=== PATIENT | female | born 1950 | race Caucasian/White ===

== ENCOUNTER 2020-04-19 14:53 | Emergency (ER) | payer BC, SELFPAY ==
--- NOTE | ~2020-04-19 | XR_ITS ---
XR wrist LT 2V DATE: 04/19/2020 15:27 INDICATION: Fall. Left wrist pain. TECHNIQUE: AP and lateral views COMPARISON: None FINDINGS: Diffuse osteopenia. There is fracture of the talus styloid process. There is a transverse distal radial fracture with up to approximately 6 mm dorsal and 2.5 mm lateral displacement with approximately 30 degrees apex anterior angulation, associated dorsal inclination of the distal radial and fibular surface. Radiocarpal alignment is preserved. Diffuse osteopenia. IMPRESSION: Distal radial and ulnar styloid process fractures Reviewed, dictated and finalized at location A.
--- NOTE | ~2020-04-19 | XR_ITS ---
XR wrist LT 2V 04/19/2020 16:59 Indication: Left wrist pain post reduction Procedure: 2 views left wrist Comparison: 04/19/2020 Findings: Displaced fracture radial styloid. Transverse distal radial fracture with decreased dorsal angulation. There is persistent dorsal and ulnar displacement. Moderate soft tissue swelling. Diffuse osteopenia. Impression: 1: Improved angulation of displaced distal radial metaphyseal fracture post reduction. There is persi stent dorsal and ulnar displacement. 2: Ulnar styloid avulsion fracture. Reviewed, dictated and finalized at location A. Impression: 1: Improved angulation of displaced distal radial metaphyseal fracture post red uction. There is persistent dorsal and ulnar displacement. 2: Ulnar styloid avulsion fracture.
[2020-04-19 14:58] VITALS: BP 116/55; PULSE 71; RESP 18; TEMP 35.9; O2SAT 99
--- NOTE | 2020-04-19 15:50 | ED.GENADULT ---
HPI - General Adult General Chief complaint: Extremity Injury, Upper Stated complaint: Left Wrist Injury Time Seen by Provider: 04/19/20 15:05 Source: patient and family Mode of arrival: ambulatory Limitations: no limitations History of Present Illness HPI narrative: Patient is a 69-year-old female who presents to emergency department for evaluation of left wrist injury after being pulled down while walking a dog landing on outstretched left wrist has since had swelling and pain to the left wrist joint patient denies other injuries or complaints presents immediately after the accident has not taken anything for her symptoms Related Data Allergies Allergy/AdvReac Type Severity Reaction Status Date / Time No Known Allergies Allergy Unverified 08/02/19 13:30 Review of Systems Review of Systems: All systems reviewed & are unremarkable except as noted in HPI and below PMFSH Past Medical History Medical History (Updated 04/19/20 @ 17:19 by Bijan Bains PA-C) Angiomyolipoma of both kidneys Diverticulosis of colon Dyslipidemia Essential (primary) hypertension Osteopenia unspecified location Pulmonary nodules unspecified location Surgical History Surgical History History of breast implant 1985 History of hysterectomy 1999 Hx of appendectomy 1995 Family History Family History Other Hypertension Social History Social History Smoking status: Never smoker Second hand tobacco smoke exposure: No Alcohol intake: current Substance use: never Substance use type: does not use Exam Narrative: Exam Narrative: GENERAL: Well-appearing, well-nourished, and in no acute distress. HEAD: Normocephalic, atraumatic. EYES: PERRLA and EOMI. ENT: Nares clear, no rhinorrhea or epistaxis. Mucous membranes moist. CHEST: Clear to auscultation. No respiratory distress. No wheezes rales or rhonchi HEART: Regular rate and rhythm. No murmur heard. Normal peripheral pulses. EXTREMITIES: Swelling and tenderness of the left wrist joint SKIN: Warm, dry, no rash. NEURO: No focal deficits. Alert and oriented x3. Neurovascularly intact. Capillary refill less than 3 seconds PSYCH: Normal mood and affect. Course Course Emergency Course: Patient in the room at this time aware of case findings treatment plan diagnosis recommendations of orthopedic surgical agrees to follow-up Consultations Consultation #1: Discussed case with orthopedic surgeon who will follow patient in clinic Date: 04/19/20 Time: 17:17 Vital Signs Vital signs: Vital Signs Temperature 96.6 F L 04/19/20 14:58 Pulse Rate 71 04/19/20 14:58 Respiratory Rate 18 04/19/20 14:58 Blood Pressure 116/55 L 04/19/20 14:58 Pulse Oximetry 99 04/19/20 14:58 Temperature 96.6 F L 04/19/20 14:58 Pulse Rate 71 04/19/20 14:58 Respiratory Rate 18 04/19/20 14:58 Blood Pressure 116/55 L 04/19/20 14:58 Pulse Oximetry 99 04/19/20 14:58 Procedures Orthopedic Fracture Reduction Fracture #1: Fracture Reduction date: 04/19/20 Fracture Reduction time: 17:16 Side: left Fracture Reduction Location: radius Analgesia: hematoma block Pre-Procedure Neuro Vascular Exam: normal Technique: direct manipulation Post Reduction X-rays Demonstrate: anatomical reduction Post-reduction neuro exam: intact Post-reduction vascular exam: intact Splint Applied: Yes Patient Tolerated Procedure: well Orthopedic Splinting/Casting Injury #1: Splinting/Casting Date: 04/19/20 Splinting/Casting Time: 17:17 Side: left Upper Extremity Immobilizer: posterior splint Splint: prefabricated OCL: short arm Pre-Procedure Neuro Vascular Exam: normal Post-Procedure Neuro Vascular Exam: norm
[2020-04-19] MEDS: MORPHINE SULFATE (*CRX) 4 MG/ML INJ IV PUSH ×2 (15:56→16:43)
[2020-04-19 17:32] VITALS: BP 115/72; PULSE 69; RESP 18; O2SAT 100
== END 2020-04-19 17:33 | disposition home or self-care (01) ==
PROVIDERS: Emergency Provider Emergency Medicine; PCP Family Medicine
DX: S52.592A Other fractures of lower end of left radius, initial encounter for closed fracture (principal); S52.612A Displaced fracture of left ulna styloid process, initial encounter for closed fracture; E78.5 Hyperlipidemia, unspecified; I10 Essential (primary) hypertension; M85.88 Other specified disorders of bone density and structure, other site; Z86.018 Personal history of other benign neoplasm; Y93.K1 Activity, walking an animal; W18.39XA Other fall on same level, initial encounter
CPT/HCPCS: 25605; 73100; 96374; 96376; 99285; J2270

== ENCOUNTER 2020-04-23 13:15 | Outpatient (CLI) | payer BC, SELFPAY ==
[2020-04-24 18:20] LABS: SARS-CoV-2 RNA PCR Negative
== END 2020-04-23 13:16 | disposition home or self-care (01) ==
LOC: ANHCOVIDDT 13:15
PROVIDERS: PCP Family Medicine; Visit Provider Orthopaedic Surgery
DX: Z01.812 Encounter for preprocedural laboratory examination (principal); Z20.828 Contact with and (suspected) exposure to other viral communicable diseases
CPT/HCPCS: 87635; C9803; U0003

== ENCOUNTER 2020-04-25 01:14 | Day surgery (SDC) | payer BC, SELFPAY ==
[2020-04-23 14:57] VITALS: BMI 24.2
[2020-04-25] VITALS (7 sets, daily range): BP systolic 128–144; BP diastolic 61–83; PULSE 80–96; RESP 12–22; TEMP 36.3–36.9; O2SAT 91–98
--- NOTE | ~2020-04-25 | XR_ITS ---
EXAMINATION: XR surgery orthopedic DATE: 04/25/2020 13:16 INDICATION: ORIF distal left radial fracture TECHNIQUE: 2 fluoroscopic spot images of the left wrist were obtained during procedure performed by Rosemary Mcdonough. Radiologist was not present for the imaging or procedure. The amount of fluoroscopy time use d during this procedure was 0.7 minutes. COMPARISON: None. FINDINGS: Near-anatomic alignment post open reduction and volar T plate and screw fixation of a fracture of the distal left radius which is now in near-anatomic alignment. Unchanged distraction of an ulnar styloi d avulsion fracture. No other fractures identified. Expected postoperative gas in the soft tissues. IMPRESSION: 1. Near-anatomic alignment post reduction and internal fixation of an extra articular distal left rad ial fracture. 2. Unchanged distracted ulnar styloid fracture which remains unfixed. Reviewed, dictated and finalized at location A. UND SALES MANAGER IMPRESSION: 1. Near-anatomic alignment post reduction and internal fixation of an extra art icular distal left radial fracture. 2. Unchanged distracted ulnar styloid fracture which remains unfixed.
--- NOTE | 2020-04-25 08:16 | P.PNAN_ITS ---
Anes - Initial Pre Proc Eval Procedure: Operation Date: 04/25/20 12:00 Proposed Procedures p Open Reduction Internal Fixation Left Distal Radius - Mario Mcdonough MD Date/Time: 04/25/20 08:16 Surgeon: Mario Mcdonough MD Pre Op Diagnosis: left distal radius fx Patient Data Age: 69 Gender: F Height: 1.68 m Weight: 68 kg Allergies Allergy/AdvReac Type Severity Reaction Status Date / Time No Known Allergies Allergy Unverified 04/25/20 10:54 Home Medications Medication Instructions Recorded Confirmed Type hydrocodone-acetaminophen [Shingleton] 1 tablet PO Q4H PRN #20 tablet 04/19/20 04/23/20 Rx atorvastatin 10 mg PO HS 04/23/20 04/23/20 History calcium carbonate [Calcium 600] 600 mg PO DAILY 04/23/20 04/23/20 History glucos sul 2KZb-kka-dxzrn-C-Mn 1 cap PO DAILY 04/23/20 04/23/20 History [Glucosamine Chondroitin] lisinopril-hydrochlorothiazide 1 tablet PO QAM 04/23/20 04/23/20 History vit C,W-Ux-mwveg-lutein-zeaxan 1 tablet PO DAILY 04/23/20 04/23/20 History [PreserVision AREDS-2] Patient hx anesthesia problems: none Family hx anesthesia problems: none PMFSH Past Medical History Medical History (Updated 04/23/20 @ 11:13 by Mario Mcdonough MD) Angiomyolipoma of both kidneys BMI 25.0-25.9,adult Diverticulosis of colon Dyslipidemia Essential (primary) hypertension Osteopenia unspecified location Pulmonary nodules unspecified location Surgical History Surgical History (Updated 04/23/20 @ 11:14 by Mario Mcdonough MD) Closed extra-articular fracture of distal end of left radius surgery April 25, 2020 History of breast implant 1985 History of hysterectomy 1999 Hx of appendectomy 1995 Family History Family History Other Hypertension Social History Social History (Updated 04/23/20 @ 10:51 by Bianka Bains) Smoking status: Never smoker Second hand tobacco smoke exposure: No Alcohol intake: current Drinks per week: 1 Substance use: never Substance use type: does not use Living arrangements: with family Gender identity (if verbalized by the patient): Female Spiritual care concerns: No Anes - Eval Final PreProcedure Day of Procedure 04/25/20 08:16 Patient weight: normal Heart: regular rate and rhythm Lungs: clear to auscultation and normal air movement Airway: Mallampati scale class II Neurological: alert and oriented Last oral intake: >/= 8 hours ASA classification: II Emergent: no Anesthetic plan: proceed Anesthesia type and monitoring: general LMA Informed Consent: The patient's anesthetic plan and its attendant risks and benefits were discussed with the patient/family/POA. Questions were solicited and answers provided to the satisfaction of the patient/family/POA.
--- NOTE | 2020-04-25 08:58 | ECG_ITS ---
Measurements Intervals [place] Rate: 80 P: 68 CT: 152 QRS: 18 QRSD: 98 T: 60 QT: 360 QTc: 417 Interpretive Statements SINUS RHYTHM BASELINE ARTIFACT- V4 NORMAL ECG Electronically Signed On 04-25-2020 10:54:16 [employer] by Delmer Viera D.O.
[2020-04-25] MEDS: ACETAMINOPHEN 500 MG TABLET 1000 MG PO (10:29)
[2020-04-25] MEDS: LACTATED RINGERS 1,000 ML 30 ML IV CONT ×2 (10:30→13:22)
[2020-04-25] MEDS: KETOROLAC 15 MG/ML VIAL (*BKC) IV PUSH (10:30)
[2020-04-25 10:43] LABS: Anion Gap 9 mmol/L (8-16); Blood Urea Nitrogen 22 mg/dL (7-17); Calcium 9.6 mg/dL (8.4-10.2); Carbon Dioxide 30 mmol/L (22-30); Chloride 104 mmol/L (98-107); Estimated CRCL calculation 61 ml/min; Estimated Glomerular Filt Rate > 60; Glucose 95 mg/dL (65-105); Potassium 4.3 mmol/L (3.4-5.0); Sodium 143 mmol/L (137-145)
--- NOTE | 2020-04-25 11:48 | WPDHPUPDATE1 ---
History and Physical Update Update Date/Time: 04/25/20 11:48 History and Physical has been reviewed, including an updated exam of the patient. There are NO changes in the patient's condition. Risks, benefits, and alternatives have been discussed and questions answered. Patient agrees to proceed with procedure.
--- NOTE | 2020-04-25 11:52 | WPDANESPNB ---
Anes - Peripheral Nerve Block Date/Time: 04/25/20 11:52 I have discussed with the patient/family/POA the placement of a peripheral nerve block for post-operative pain management, including associated risks, benefits, complications, and side effects. Alternative methods of post-operative analgesia were detailed. Questions were solicited and answers provided to the satisfaction of the patient/family/POA. Time-Out: A pre-procedural Time-Out was completed immediately before starting the procedure and confirmed: Patient Identification, Site, Procedure, Patient Position and the Availability of Requisite Equipment. Clinical Indications: Acute post-operative pain management requested by the operative surgeon. Nerve Block Insertion Note Anes-nerve block: supraclavicular left Patient position: supine Skin prep: chlorhexidine Needle: 22 gauge, stimulating, insulated echogenic needle. Needle length: 80 mm Technique: ultrasound (in plane) Injectate: bupivacaine 0.5% with epi 5 mcg/ml (20cc) Observations: tolerated well Complications: none Procedure start time:: 1145 Procedure end time:: 1150
[2020-04-25] MEDS: ceFAZolin 2 GM/D5W 50 ML 2 GM/50 ML BAG IVPB (12:00)
--- NOTE | 2020-04-25 13:32 | P.OP_ITS ---
Procedure Note - Detailed Date of procedure: 04/25/20 Pre-op diagnosis: left distal radius fx Post-op diagnosis: same Procedure performed: ORIF left distal radius fracture Description of procedure: The patient was identified and the proper side identified. In the preop holding area, the anesthesia team performed a left upper extremity block. she was taken back to the operating room, transferred to the or table positioning supine taking care to pad her torso and extremities. After general anesthetic induction and intubation, a nonsterile tourniquet was placed high on the left arm which was prepped and draped in the usual sterile fashion. The extremity was exsanguinated and tourniquet inflated to 200 mmHg remaining up for approximately 45 minutes. A volar longitudinal incision was made along the FCR tendon distally. The subcutaneous tissue was sharply dissected protecting neurovascular structures. The FCR tendon was released from its sheath and retracted ulnarly. This allowed for the deep fascia of the forearm to be divided longitudinally in line with the incision. Care was taken to protect the volar compartment structures as well as the radial nerve and radial vascular structures. The pronator quadratus was elevated off of the distal radius allowing for inspection of the fracture site. The fracture fragments were disimpacted and able to be realigned virtually anatomically with fluoroscopic assistance. They were secured in this position with a left, short, narrow plate from the DVR set. The plate was applied with fluoroscopic visualization to avoid penetration of the joint and to ensure optimal hardware placement. Once the plate was secure the overall construct was assessed fluoroscopically on the AP and lateral views. The virtually anatomic reduction was held very nicely. The construct was stable. The wound was irrigated with a copious amount of sterile antibiotic solution. Skin edges were reapproximated with two 0 strata fix and tissue adhesive. Sterile dressing was applied. Karthik rniquet was released. A well-padded short-arm volar wrist splint was fashioned. The procedure was well tolerated. There were no known intraoperative complications. Estimated blood loss was negligible. Anesthesia: GLMA Surgeon: Mario Mcdonough MD Fiberglass Ski Maker: Erika Brown Estimated blood loss (mL): 3 Tourniquet time (min): 45 Drains: No Packing: No Pathology: none sent Complications: No immediate complications Condition: stable Disposition: PACU
== END 2020-04-25 14:47 | disposition home or self-care (01) ==
PROVIDERS: Anesthesiology; PCP Family Medicine; Visit Provider Orthopaedic Surgery
PROC: (CPT 25575; principal; 2020-04-25 12:00)
DX: S52.552A Other extraarticular fracture of lower end of left radius, initial encounter for closed fracture (principal); W01.0XXA Fall on same level from slipping, tripping and stumbling without subsequent striking against object, initial encounter; G89.18 Other acute postprocedural pain; I10 Essential (primary) hypertension; E78.5 Hyperlipidemia, unspecified
CPT/HCPCS: 25607; 64415; 36415; 80048; 93005; A4565; A9270; C1713; J0690; J1100; J1885; J2250; J2405; J2704; J2710; J3010; J7120

== ENCOUNTER 2020-05-22 06:58 | Outpatient (NON) | payer BC, SELFPAY ==
[2020-05-22 23:27] LABS: SARS-CoV-2 RNA PCR Positive
== END 2020-05-22 06:59 ==
PROVIDERS: PCP Family Medicine; Visit Provider Family Medicine
DX: U07.1 COVID-19 (principal)
CPT/HCPCS: 87635; C9803; U0003

== ENCOUNTER 2020-07-10 07:30 | Outpatient (RCR) | payer BC, SELFPAY ==
--- NOTE | 2020-06-12 10:04 | OTOPEVAL ---
OCCUPATIONAL THERAPY EVALUATION REPORT 06/12/2020 Thank you for referring Haily Sesay to [facility].? The patient is scheduled to be seen for therapy? 2x/week for 4 weeks. Please review, sign, date and return this plan of care FRANKLIN. I agree with and certify that the following plan of care is medically necessary. Referring Physician Date Referring Provider: Mario Mcdonough MD *OT Outpatient Evaluation Therapy Assessment Status Assessment Status Assessment Status Evaluation Outpatient Past Medical History Neurological History Hx Neurological Disorders No Significant History Cardiovascular History Hx Hypercholesterolemia Yes Hx Hypertension Yes Respiratory History Hx Respiratory Disorders No Significant History Gastrointestinal History Hx Appendectomy Yes Genitourinary History Hx Other Genitourinary Disorders Yes: ANGIOMYOLIPOMA KIDNEYS- BENIGN TUMORS Musculoskeletal History Hx Fractures Yes: 04/19/20 LT DISTAL RADIUS FX- IN SPLINT CURRENTLY Hematological History Hx Hematological Disorders No Significant History Endocrine History Hx Endocrine Disorders No Significant History HEENT History Hx HEENT Disorders No Significant History Integumentary History Hx Skin Disorders No Significant History Reproductive History Hx Hysterectomy Yes Hx Other Reproductive Disorders Yes: BILAT BREAST IMPLANTS Psychosocial History Hx Psychiatric Disorders No Significant History Pain History History of Any Previous or Ongoing No Significant History Instance of Pain Anesthesia History Hx Post-Op Nausea/Vomiting Yes: MILD N/V IN PAST Evaluation Information Problem Diagnosis left distal radius fracture Onset ORIF 04/25/2020 Subjective Information Haily reports that she is able Query Text:As Reported By Patient/ to complete ADLs Family independently. She does note difficulty turning her palm up to sweep crumbs off the counter. Also difficulty lifting anything with the left hand due to weakness and fear of using/injuring the wrist again. Prior Level of Function Activity Level (Last 3 Months) Hand Dominance Right Cooking Yes Cleaning Yes Laundry Yes Shopping Yes Driving Yes Pain Assessment Timing of Pain Assessment Timing of Pain Assessment Assessment Pain Scale Pain Scale Used Numeric (1 - 10) Self Report Pain Assessment Left Wrist(s)
--- NOTE | 2020-07-10 08:06 | OTOPEVAL ---
OCCUPATIONAL THERAPY RE-EVALUATION AND DISCHARGE SUMMARY 07/10/20 Haily has progressed with functional use of the left UE, functional strength, and functional ROM. She is currently independent with all HEPs. No further skilled OT is indicated at this time. Thank you for referring Haily Sesay to [facility] Please review, sign, date and return this D/C Note FRANKLIN. I agree with and certify that the following plan of care is medically necessary. Referring Physician Date Referring Provider: Mario Mcdonough MD *OT Outpatient Re-Evaluation Evaluation Information Problem Diagnosis left distal radius fracture Onset ORIF 04/25/2020 Additional Evaluation Detail Haily participated in 7 treatment sessions for weakness and stiffness o the left wrist. She is made excellent progress functionally and is ready for discharge. She is currently independent with all strengthening HEPs. Subjective Information Haily reports that everything Query Text:As Reported By Patient/ is easier since beginning Family therapy 4 weeks ago. She is now able to supinate to sweep crumbs off the counter, button her pants, lift various items , and use her hand to use a can upper leather sorter. She states that lifting a heavy temple continues to be difficult but understands that strength will continue to build over time. Pain Assessment Timing of Pain Assessment Timing of Pain Assessment Re-assessment Pain Scale Pain Scale Used Numeric (1 - 10) Self Report Pain Assessment Left Wrist(s) Reported Pain Level 0 Lowest Pain Intensity 0 Greatest Pain Intensity 3 Pain Aggravating Factors ADL's,Exercise/Activity Other Pain Aggravating Factors UD with weight causes pain at the distal ulna. Pain Score Pain Score 0: Self Report Upper Extremity Range of Motion Elbow/Forearm Range of Motion Left Forearm Supination - Active 80 Forearm Pronation - Active 85 Elbow/Forearm Range of Motion Comments Elbow flexion and extension remained WNL. Supination improved from 60* Pronation improved from 75* Wrist Range of Motion Left Wrist Flexion - Active 60 Wrist Extension - Active 60 Wrist Radial Deviation - Active 25 Wrist Ulnar Deviation - Active 30 Finger R
== END 2020-07-10 11:23 | disposition home or self-care (01) ==
LOC: ANHOT 07:30
PROVIDERS: PCP Family Medicine; Visit Provider Orthopaedic Surgery
DX: S52.552D Other extraarticular fracture of lower end of left radius, subsequent encounter for closed fracture with routine healing (principal)
CPT/HCPCS: 97018; 97110; 97165

== ENCOUNTER 2020-10-04 07:32 | Outpatient (CLI) | payer BC, SELFPAY ==
--- NOTE | ~2020-10-04 | MM_ITS ---
EXAMINATION: MM scrn miriam implant BI w vale HISTORY: Screening mammogram TECHNIQUE: Craniocaudal and mediolateral oblique 3-D tomosynthesis images with implant displacement a nd synthetic 2-D images were generated. Craniocaudal and mediolateral oblique views of the breasts wi thout implant displacement were obtained using full field digital mammography. CAD analysis was submi tted and interpreted. COMPARISON: Comparison to multiple prior studies sequentially, with oldest reviewed study dated 09/17. BREAST PARENCHYMAL COMPOSITION: There are scattered areas of fibroglandular density. FINDINGS: There is no evidence of suspicious mass, calcification, or architectural distortion to sugg est malignancy in either breast. There has been no suspicious interval change. IMPRESSION: 1. No mammographic evidence of malignancy. 2. Recommend routine screening mammography in one year. BI-RADS Category 1: Negative Reviewed, dictated and finalized at location A.
== END 2020-10-04 07:33 | disposition home or self-care (01) ==
LOC: ANHIMG 07:33
PROVIDERS: PCP Family Medicine; Visit Provider Obstetrics & Gynecology
DX: Z12.31 Encounter for screening mammogram for malignant neoplasm of breast (principal)
CPT/HCPCS: 77063; 77067

== ENCOUNTER 2021-01-24 10:30 | Outpatient (CLI) | payer BC, SELFPAY ==
--- NOTE | ~2021-01-24 | CT_ITS ---
EXAMINATION: CT abdomen pelvis w con INDICATION: Diverticulosis of the large intestine without perforation TECHNIQUE: Computed tomographic images of the abdomen and pelvis were obtained after the administrati on of 100 cc of Omnipaque 350 intravenous contrast. The dose-length product (DLP) was 397.81 mGy-cm. Automated exposure control and iterative reconstruction technique were employed. COMPARISON: 08/09/2014 FINDINGS: Minimal dependent atelectasis is present in the lung bases. The heart size is normal. The l iver, spleen, pancreas, gallbladder, and adrenal glands are normal. There are lesions in both kidneys measuring up to 10 mm which contain macroscopic fat, consistent with angiomyolipomas. No pathologica lly enlarged abdominal or pelvic lymph nodes are identified. There is no free intraperitoneal gas or evidence of bowel obstruction. Colonic diverticulosis is present without evidence of diverticulitis. There is mild lumbar spondylosis. IMPRESSION: 1. Diverticulosis without evidence of diverticulitis. Reviewed, dictated and finalized at location A.
[2021-01-24 10:56] LABS: Estimated Glomerular Filt Rate > 60
== END 2021-01-24 10:31 | disposition home or self-care (01) ==
LOC: ANHIMG 10:32
PROVIDERS: PCP Family Medicine; Visit Provider Nurse Practitioner
DX: K57.30 Diverticulosis of large intestine without perforation or abscess without bleeding (principal); R91.8 Other nonspecific abnormal finding of lung field
CPT/HCPCS: 74177; Q9967

== ENCOUNTER 2021-01-31 14:44 | Outpatient (CLI) | payer BC, SELFPAY ==
--- NOTE | ~2021-01-31 | CT_ITS ---
EXAMINATION: CT diagnostic chest wo con DATE: 01/31/2021 15:06 INDICATION: R91.8 - Other nonspecific abnormal finding of LEFTlung field TECHNIQUE: Computed tomography (CT) of the chest was performed without intravenous contrast. Addition al 3D reconstructions utilizing coronal maximum intensity projection (MIP) were performed. Automated exposure control and iterative reconstruction technique were employed. The dose-length product was 62 .46 mGy-cm. COMPARISON: 04/12/2017 FINDINGS: No interval change in a couple 4 mm noncalcified granulomata in the left and right lower lobes. No ne w or enlarging pulmonary nodules identified. Mild discoid atelectasis/scarring in the lingula. No pne umonia, pulmonary edema or pleural effusion. Heart size is normal. No pericardial effusion. Thoracic aorta is normal in caliber. No pathologically enlarged thoracic lymphadenopathy. Bilateral breast imp lants with some capsular calcification 8 mm macroscopic fat attenuation angiomyolipoma in the right k idney. Bones are unremarkable. IMPRESSION: 1. No interval change in a couple 4 mm noncalcified granuloma in the bilateral lower lobes. No acute cardiopulmonary disease. Reviewed, dictated and finalized at location A.
== END 2021-01-31 14:45 | disposition home or self-care (01) ==
LOC: ANHIMG 14:45
PROVIDERS: PCP Family Medicine; Visit Provider Nurse Practitioner
DX: R91.8 Other nonspecific abnormal finding of lung field (principal)
CPT/HCPCS: 71250

== ENCOUNTER 2021-08-01 10:42 | Outpatient (CLI) | payer BC, SELFPAY ==
--- NOTE | ~2021-08-01 | XR_ITS ---
XR knee RT min 4V DATE: 08/01/2021 11:09 INDICATION: Right posterior knee pain, unable to bear weight TECHNIQUE: AP, lateral, bilateral oblique views COMPARISON: None FINDINGS: No fracture or dislocation or joint effusion. Joint spaces are well preserved. No radiopaqu e intra-articular loose body or chondrocalcinosis. No periosteal reaction or bone destruction. IMPRESSION: Negative Reviewed, dictated and finalized at location A. H SCIENCE TECHNICAL OFFICER IMPRESSION: Negative
== END 2021-08-01 10:43 | disposition home or self-care (01) ==
LOC: ANHIMG 10:49
PROVIDERS: PCP Family Medicine; Visit Provider Nurse Practitioner
DX: M25.561 Pain in right knee (principal)
CPT/HCPCS: 73564

== ENCOUNTER 2022-01-29 11:06 | Outpatient (CLI) | payer BC, SELFPAY ==
[2022-01-29 13:06] LABS: Basophils Absolute Auto 0.1 K/mm3 (0.0-0.1); Basophils Percent Auto 0.6 % (0.2-1.2); Eosinophils Absolute Auto 0.2 K/mm3 (0-0.3); Eosinophils Percent Auto 1.9 % (0-4.4); Hematocrit 41.8 % (37.0-47.0); Hemoglobin 13.3 g/dL (12.0-15.0); Immature Granulocyte Absolute 0.03 K/mm3 (0.00-0.031); Immature Granulocyte Percent A 0.4 % (0-0.5); Lymphocytes Absolute Auto 2.07 K/mm3 (0.9-3.2); Lymphocytes Percent Auto 25.6 % (18.3-44.2); Mean Corpuscular HGB Conc 31.8 g/dl (32-36); Mean Corpuscular Hemoglobin 28.8 pg (26-34); Mean Corpuscular Volume 90.5 fl (80-100); Mean Platelet Volume 10.1 fl (7.4-10.4); Monocytes Absolute Auto 0.5 K/mm3 (0.1-0.6); Monocytes Percent Auto 5.9 % (2.6-8.5); Neutrophils Absolute Auto 5.3 K/mm3 (1.3-6.7); Neutrophils Percent Auto 65.6 % (45.5-73.1); Platelet Count Result 257 k/mm3 (150-375); Red Blood Count 4.62 M/mm3 (4.2-5.4); Red Cell Distribution Width 13.5 % (11.5-14.5); White Blood Count 8.1 K/mm3 (4.5-10.0)
[2022-01-29 13:14] LABS: Alanine Aminotransferase 21 U/L (6-35); Albumin Level 4.4 g/dL (3.5-5.1); Alkaline Phosphatase 72 U/L (38-126); Anion Gap 12 mmol/L (8-16); Aspartate Amino Transferase 28 U/L (14-36); Bilirubin,Total 0.6 mg/dL (0.2-1.3); Blood Urea Nitrogen 21 mg/dL (7-17); Calcium 10.1 mg/dL (8.4-10.2); Carbon Dioxide 24 mmol/L (22-30); Chloride 101 mmol/L (98-107); Cholesterol 179 mg/dL (0-200); Estimated Glomerular Filt Rate > 60; Glucose 95 mg/dL (65-110); HDL Direct 65 mg/dL; Potassium 3.8 mmol/L (3.4-5.0); Sodium 137 mmol/L (137-145); Triglycerides 87 mg/dL (<150)
[2022-01-29 13:25] LABS: LDL Cholesterol Direct 73 mg/dL
[2022-01-29 13:41] LABS: Vitamin D 25 Hydroxy 62.9 ng/mL
== END 2022-01-29 11:07 | disposition home or self-care (01) ==
PROVIDERS: PCP Nurse Practitioner; Visit Provider Nurse Practitioner
DX: E55.9 Vitamin D deficiency, unspecified (principal); E78.5 Hyperlipidemia, unspecified; I10 Essential (primary) hypertension
CPT/HCPCS: 36415; 80053; 80061; 82306; 85025

== ENCOUNTER → 2022-04-27 12:14 | Outpatient (CLI) | payer BC, SELFPAY ==
--- NOTE | ~2022-04-27 | DEXA_ITS ---
Bone Density Report Name: ANG MAYFIELD Age: 71 Sex: Female Ethnicity: White Date of : 1950 Indication: osteopenia; prior fracture; hysterectomy; postmenopausal Referring Provider: Lucy Still Study: Bone densitometry was performed. Exam Date: April 27, 2022 Accession number: [id number] Bone Density: Region BMD T-score Z-score Classification AP Spine (L1-L4) 0.829 -2.0 0.2 Osteopenia Femoral Neck (Left) 0.710 -1.3 0.6 Osteopenia Total Hip (Left) 0.820 -1.0 0.6 Normal Femoral Neck (Right) 0.647 -1.8 0.1 Osteopenia Total Hip (Right) 0.708 -1.9 -0.3 Osteopenia Total Hip Mean 0.764 -1.5 0.2 Osteopenia World Health Organization criteria for BMD impression classify patients as: Normal (T-score at or above -1.0), Osteopenia (T-score between -1.0 and -2.5), or Osteoporosis (T-score at or below -2.5). 10-year Fracture Risk(1): Major Osteoporotic Fracture 18% Hip Fracture 3.3% Reported Risk Factors: [place] (), Neck BMD=0.647, BMI=26.9, previous fracture (1) FRAX(R) Version 3.08. Fracture probability calculated for an untreated patient. Fracture probability may be lower if the patient has received treatment. Previous Exams: Region Exam Age BMD T-score BMD Change BMD Change Date g/cm2 vs Baseline vs Previous AP Spine(L1-L4) 04/27/2022 71 0.829 -2.0 -0.016 -0.016 09/29/2006 56 0.845 -1.8 Total Hip(Left) 04/27/2022 71 0.820 -1.0 0.015 0.015 09/29/2006 56 0.804 -1.1 Total Hip(Right) 04/27/2022 71 0.708 -1.9 -0.029 -0.029 09/29/2006 56 0.737 -1.7 *Denotes significance at 95% confidence level, LSC for AP Spine = 0.022 g/cm2, LSC for Total Hip = 0.027 g/cm2 Clinical Information Provided by Patient: Has had a low trauma fracture Has used the following medications: Calcium, MTV Has the following medical conditions: Hysterectomy Patient maximum height was 66.0 Menopause Age: 52 Drinks caffeinated beverages Onset of menses at age 15 Number of children 2 Missed period for more than 6 months in a row Impression: The patient has low bone mass, based on the Total Spine T-score. The patient has an estimated ten-year risk of hip fracture of 3.3% and an estimated ten-year risk of major fracture of 18%, based on the WHO FRAX algorithm. The patient has risk factors, including: previous fracture. No significant bone loss was observed. Discussion: BONE DENSITY
--- NOTE | ~2022-04-27 | MM_ITS ---
EXAMINATION: MM scrn miriam implant BI w vale HISTORY: Screening mammogram TECHNIQUE: Craniocaudal and mediolateral oblique 3-D tomosynthesis images with implant displacement a nd synthetic 2-D images were generated. Craniocaudal and mediolateral oblique views of the breasts wi thout implant displacement were obtained using full field digital mammography. CAD analysis was submi tted and interpreted. COMPARISON: 10/04/2020, 07/10/2017, 09/17/2014 bilateral implant screening mammogram examinations BREAST PARENCHYMAL COMPOSITION: The breasts are heterogeneously dense, which may obscure small masses . FINDINGS: Status post bilateral augmentation mammoplasty. There is no evidence of suspicious mass, ca lcification, or architectural distortion to suggest malignancy in either breast. There has been no perez spicious interval change. IMPRESSION: 1. No mammographic evidence of malignancy. 2. Recommend routine screening mammography in one year. BI-RADS Category 1: Negative Reviewed, dictated and finalized at location A. ARCH DIRECTOR
== END ==
PROVIDERS: PCP Family Medicine; Visit Provider Nurse Practitioner
DX: Z12.31 Encounter for screening mammogram for malignant neoplasm of breast (principal); Z78.0 Asymptomatic menopausal state; M85.88 Other specified disorders of bone density and structure, other site; M85.852 Other specified disorders of bone density and structure, left thigh; M85.851 Other specified disorders of bone density and structure, right thigh
CPT/HCPCS: 77063; 77067; 77080

== ENCOUNTER 2023-02-01 09:40 | Outpatient (CLI) | payer BC, SELFPAY ==
[2023-02-01 12:11] LABS: Kit Draw Collected
== END 2023-02-01 09:41 | disposition home or self-care (01) ==
LOC: ANHGOSHLAB 09:43
PROVIDERS: PCP Family Medicine; Visit Provider Nurse Practitioner Family
DX: Z13.29 Encounter for screening for other suspected endocrine disorder (principal); Z13.1 Encounter for screening for diabetes mellitus; Z13.21 Encounter for screening for nutritional disorder; Z13.220 Encounter for screening for lipoid disorders; I10 Essential (primary) hypertension
CPT/HCPCS: 36415

== ENCOUNTER 2024-02-03 10:17 | Outpatient (CLI) | payer BC, SELFPAY ==
[2024-02-03 13:29] LABS: Basophils Absolute Auto 0.1 K/mm3 (0.0-0.1); Basophils Percent Auto 0.9 % (0.2-1.2); Eosinophils Absolute Auto 0.2 K/mm3 (0-0.3); Eosinophils Percent Auto 2.4 % (0-4.4); Hematocrit 44.7 % (37.0-47.0); Hemoglobin 14.2 g/dL (12.0-15.0); Immature Granulocyte Absolute 0.02 K/mm3 (0.00-0.031); Immature Granulocyte Percent A 0.3 % (0-0.5); Lymphocytes Absolute Auto 1.73 K/mm3 (0.9-3.2); Lymphocytes Percent Auto 26.2 % (18.3-44.2); Mean Corpuscular HGB Conc 31.8 g/dl (32-36); Mean Corpuscular Hemoglobin 29.4 pg (26-34); Mean Corpuscular Volume 92.5 fl (80-100); Mean Platelet Volume 10.2 fl (7.4-10.4); Monocytes Absolute Auto 0.5 K/mm3 (0.1-0.6); Monocytes Percent Auto 7.4 % (2.6-8.5); Neutrophils Absolute Auto 4.2 K/mm3 (1.3-6.7); Neutrophils Percent Auto 62.8 % (45.5-73.1); Platelet Count Result 197 k/mm3 (150-375); Red Blood Count 4.83 M/mm3 (4.2-5.4); Red Cell Distribution Width 13.4 % (11.5-14.5); White Blood Count 6.6 K/mm3 (4.5-10.0)
[2024-02-03 13:33] LABS: Alanine Aminotransferase 21 U/L (6-35); Albumin Level 4.2 g/dL (3.5-5.1); Alkaline Phosphatase 68 U/L (38-126); Anion Gap 8 mmol/L (4-12); Aspartate Amino Transferase 48 U/L (14-36); Bilirubin,Total 0.6 mg/dL (0.2-1.3); Blood Urea Nitrogen 21 mg/dL (7-17); Calcium 9.7 mg/dL (8.4-10.2); Carbon Dioxide 30 mmol/L (22-30); Chloride 101 mmol/L (98-107); Cholesterol 184 mg/dL (0-200); Estimated Glomerular Filt Rate > 60; Glucose 89 mg/dL (65-110); HDL Direct 62 mg/dL; Potassium 4.1 mmol/L (3.4-5.0); Sodium 139 mmol/L (137-145); Triglycerides 82 mg/dL (<150)
[2024-02-03 13:44] LABS: LDL Cholesterol Direct 85 mg/dL
[2024-02-03 14:14] LABS: Vitamin D 25 Hydroxy 37.8 ng/mL
== END 2024-02-03 10:18 | disposition home or self-care (01) ==
LOC: ANHGOSHLAB 10:18
PROVIDERS: PCP Family Medicine; Visit Provider Family Medicine
DX: E55.9 Vitamin D deficiency, unspecified (principal); E53.8 Deficiency of other specified B group vitamins; I10 Essential (primary) hypertension; E78.5 Hyperlipidemia, unspecified; Z00.00 Encounter for general adult medical examination without abnormal findings; E03.8 Other specified hypothyroidism
CPT/HCPCS: 36415; 80053; 80061; 82306; 82607; 84443; 85025

== ENCOUNTER 2024-02-17 08:30 | Outpatient (CLI) | payer BC, SELFPAY ==
[2024-02-17 13:01] LABS: Alanine Aminotransferase 19 U/L (6-35); Albumin Level 4.2 g/dL (3.5-5.1); Alkaline Phosphatase 68 U/L (38-126); Anion Gap 8 mmol/L (4-12); Aspartate Amino Transferase 42 U/L (14-36); Bilirubin,Total 0.5 mg/dL (0.2-1.3); Blood Urea Nitrogen 21 mg/dL (7-17); Calcium 9.8 mg/dL (8.4-10.2); Carbon Dioxide 30 mmol/L (22-30); Chloride 100 mmol/L (98-107); Estimated Glomerular Filt Rate > 60; Glucose 84 mg/dL (65-110); Potassium 4.2 mmol/L (3.4-5.0); Sodium 138 mmol/L (137-145)
== END 2024-02-17 08:31 | disposition home or self-care (01) ==
LOC: ANHGOSHLAB 08:31
PROVIDERS: PCP Family Medicine; Visit Provider Family Medicine
DX: R74.01 Elevation of levels of liver transaminase levels (principal)
CPT/HCPCS: 36415; 80053

== ENCOUNTER 2024-07-20 14:11 | Outpatient (CLI) | payer MEDICARE, SELFPAY ==
--- NOTE | ~2024-07-20 | MM_ITS ---
EXAMINATION: MM scrn miriam implant BI w vale HISTORY: Screening mammogram TECHNIQUE: Craniocaudal and mediolateral oblique 3-D tomosynthesis images with implant displacement a nd synthetic 2-D images were generated. Craniocaudal and mediolateral oblique views of the breasts wi thout implant displacement were obtained using full field digital mammography. CAD analysis was submi tted and interpreted. COMPARISON: Comparison to multiple prior studies sequentially, with oldest reviewed study dated 09/17. BREAST PARENCHYMAL COMPOSITION: Not dense: There are scattered areas of fibroglandular density. FINDINGS: There is no evidence of suspicious mass, calcification, or architectural distortion to sugg est malignancy in either breast. There has been no suspicious interval change. IMPRESSION: 1. No mammographic evidence of malignancy. 2. Recommend routine screening mammography in one year. BI-RADS Category 1: Negative Reviewed, dictated and finalized at location A. F NECK LOADER
== END 2024-07-20 14:12 | disposition home or self-care (01) ==
LOC: MICIMG 14:13
PROVIDERS: PCP Family Medicine; Visit Provider Family Medicine
DX: Z12.31 Encounter for screening mammogram for malignant neoplasm of breast (principal)
CPT/HCPCS: 77063; 77067

== ENCOUNTER 2024-08-10 10:09 | Outpatient (CLI) | payer MEDICARE, SELFPAY ==
--- OUTSIDE RECORDS SUMMARY | 2024-08-10 10:30 | XMS_ITS | Continuity of Care Document ---
Author Organization [facility] Address [address] [facility] [address] [place] [address] Phone Care Team Providers Care Systems Analyst Engineer Name Role Phone Nettie Emmanuel Unavailable Unavailable Advance Directives Directive Yes / No Effective Date File Name No Information Encounters Encounter Description Practice Location Reason(s) For Visit Diagnoses Date Provider Providers Copied on Encounter [facility], [address], [place], [place], [id number], [place] tel:[phone] [facility] No Information 1 Lien Sheffield. [address] , [address], [place], [address], [place]. tel:[phone] Family History Family Member Type Diagnosis Age At Onset No Information Payers Payer name Insurance type Covered alliance party ID Authoriza tion(s) No Information Social History Type Description Quantity Date Captured Comments Sex Female Smoking Status No Information Chief Complaint And Reason For Visit No Information Reason For Referral Reason For Referral No Information History Of Present Illness Encounter Date Complaint History Of Prese nt Illness No Information Functional Status Date Functional Assessmen t No Information Instructions Date Instruction Additional Infor mation No Information Assessments Type Assessment Date No Information Patient Care Teams Name Effective Dates (start - stop) Status Members No Information
--- OUTSIDE RECORDS SUMMARY | 2024-08-10 10:30 | XMS_ITS | Patient Health Summary ---
Author Organization [facility] Address [address] [place] [address] Care Team Providers Care Small Business Representative Name Role Phone Unavailable Primary Care Provider Unavailabl e Note from [facility],non-owned Affiliates and Associated Physician Practices is amultiple site organization consisting of ambulatory clinics and hospital sitesin [place], [place], [place] and [place]. This disclosure is being madepursuant to the Care Everywhere program and may not contain all information available regarding this patient. Last updated 18.[facility] [employer] Social History Tobacco Use Types Packs/Day Years Used Date Smoking Tobacco: Never Assessed Sex and Gender Information Value Date Recorded Sex Assigned at Not on file Gender Identity Not on file Sexual Orientation Not on file Procedures * DERMATOPATHOLOGY(Performed 11/30/2022) * DERMATOPATHOLOGY(Performed 02/11/2016) Results * DERMATOPATHOLOGY (11/30/2022 12:00 AM CDT) Only the most recent of2 resultswithin the time period is included. Case Report Dermatopathology Report Case: [id number] Authorizing Provider: Jaxson Nazario MD Collected: 11/30/2022 12:00 AM Ordering Location: [facility] DermPath Lab Received: 12/01/2022 12:35 PM Pathologist: Claudette Diop MD Specimens: A) - Skin, right sup buttock medially B) - Skin, lower lat left side 3 4:09 PM CDT DERMATOPATHOLOGY LABORATORY Final Diagnosis Specimen A. 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 Other Dermatitis 3 4:09 PM [facility] DERMATOPATHOLOGY LABORATORY Gross Description Specimen A: Received is one formalin filled container labeled with the patient's name and designated right sup buttock medially. The specimen consists of a punch biopsy measuring 5x5x4 mm. Jar 0. Specimen B: Received is one formalin filled container labeled with the patient's name and designated lower lat left side. The specimen consists of a punch biopsy measuring 5x4x3 mm. Jar 0. 3 4:09 PM [facility] DERMATOPATHOLOGY LABORATORY Microscopic Description Specimen A. SKIN, right sup buttock medially: The epidermis reveals rare dyskeratotic keratinocytes and vacuolar alteration along the basal cell layer. In the superficial dermis there is a band-like infiltrate composed of lymphocytes with numerous eosinophils focally obscures the dermal-epidermal junction. In addition, there are collections of epithelioid histiocytes with rare multinucleate giant cells. There are scattered histiocytes dissecting between collagen bundles.PAS stain fails to highlight fungal elements in the available sections. The hematoxylin and eosin stain is reviewed; immunohistochemical stains are performed to further characterize this infiltrate. The infiltrate is composed of CD3 positive, CD43 positive T-cells with a CD4 to CD8 ratio of approximately 3:1. CD163 highlights the histiocytic component. PAX-5 reveals only rare B-cells. CD117 demonstrates a normal number of mast cells. Colloidal iron highlights increased interstitial dermal mucin. Additional deeper sections were obtained and reviewed. Specimen B. SKIN, lower lat left side: The epidermis reveals rare dyskeratotic keratinocytes and vacuolar alteration along the basal cell layer. In the superficial dermis there is a band-like infiltrate composed of lymphocytes with numerous eosinophils focally obscures the dermal-epidermal junction. In addition, there are collections of epithelioid histiocytes with rare multinucleate giant cells. There are scattered histiocytes dissecting between collagen bundles.PAS stain fails to highlight fungal elements in the available sections. The hematoxylin and eosin stain is reviewed; immunohistochemical stains are performed to further characterize this infiltrate. The infiltrate is composed of CD3 positive, CD43 positive T-cells with a CD4 to CD8 ratio of approximately 3:1. CD163 highlights the histiocytic component. PAX-5 reveals only rare B-cells. CD117 demonstrates a normal number of mast cells. Colloidal iron highlights increased interstitial dermal mucin. Additional deeper sections were obtained and reviewed. COMMENT FOR SPECIMEN A AND B: These histologic findings represent a lichenoid and granulomatous dermatitis. The differential diagnosis of this histologic reaction pattern includes, in decreasing frequency, a drug-induced hypersensitivity, lichenoid keratosis, and sfj-hsye-nvjpnve hypersensitivity (tattoo reaction, postherpetic dermatitis, scabies and post-scabetic dermatitis.) Less commonly, these histologic findings can be seen in pigmented purpuric dermatoses, granuloma annulare and lichen striatus. Additionally, this reaction pattern may be seen in patients with endocrinopathies, underlying granulomatous systemic disorders, or with a history of viral, fungal, or bacterial infections. Clinicopathologic correlation is recommended. See references below. References: (1) Stacie DS, Cruz A, Himanshu A, Gama O, Nawaf J, Willard K. Lichenoid granulomatous dermatitis revisited: A retrospective case series. J Am Acad Dermatol. 2019 Apr;81(5):2631-1839 . PMID: 16191348. (2) Dianelys PHAN, Aamir GRAHAM. Lichenoid and granulomatous dermatitis. Int J Dermatol. 2000 Jul;39(2):126-33. PMID: [id number]. 3 4:09 PM CDT DERMATOPATHOLOGY LABORATORY Disclaimer An external and internal positive and negative controls are appropriate for the histochemical, immunohistochemical and immunofluorescence stain(s) in this case (if any), except where stated explicitly. The performance characteristics of the stain(s) cited in this report were developed and its performance characteristic determined by the Dermatopathology Laboratory at [facility], directed by Dr. Robyn Pittman. These tests need not be, and therefore are not, approved by the [place] Food and Drug Administration. The tests are used for clinical purposes. Billing Codes Specimen Charges Stain Charges 31116 65087 1 1 69147 16355 19760 38001 06036 82036 50966 52403 45037 16495 75600 62334 58081 95502 43863 26597 10713 47550 1 1 1 1 1 1 1 1 1 1 1 1 1 1 1 1 1 1 3 4:09 PM CDT DERMATOPATHOLOGY LABORATORY Embedded Images 3 4:09 PM CDT DERMATOPATHOLOGY LABORATORY Pathology/Cytology TISSUE SPECIMEN FROM SKIN / Unknown 11/30/2022 12/01/2022 12:35 PM CDT Miscellaneous samples (specimen) TISSUE SPECIMEN FROM SKIN / Unknown 11/30/2022 12/01/2022 12:35 PM CDT Jaxson Nazario MD LAB - PATHOLOGY/CYTO LOGY ORDERABLES DERMATOPATHOLOGY LABORATORY [facility] - Department of Dermatology [facility] [address] [place] [address], [address] [phone]
--- OUTSIDE RECORDS SUMMARY | 2024-08-10 10:30 | XMS_ITS | Clinical Summary ---
Author Organization [facility] Address [address] [place] [address] Care Team Providers Care Date Pitter Name Role Phone Unavailable Primary Care Provider Unavailabl e Source Comments [facility],non-owned Affiliates and Associated Physician Practices is amultiple site organization consisting of ambulatory clinics and hospital sitesin [place], [place], [place] and [place]. This disclosure is being madepursuant to the Care Everywhere program and may not contain all information available regarding this patient. Last updated 18.[facility] Social History Tobacco Use Types Packs/Day Years Used Date Smoking Tobacco: Never Assessed Sex and Gender Information Value Date Recorded Sex Assigned at Not on file Gender Identity Not on file Sexual Orientation Not on file Plan of Treatment Health Maintenance Due Date Last Done Comments BONE DENSITY TESTING 1950 COLOGUARD (AGES 45-75) - COL ON CA SCREENING 1950 COLON MONITORING 1950 COLONOSCOPY - COLON CA SCREENING 1950 CT COLONOGRAPHY - COLON CA SCREENING 1950 Colorectal Cancer Screening 1950 FIT - COLON CA SCREENING 1950 FLEX SIG - COLON CA SCREENING 1950 LIPID TESTING 1950 MAMMOGRAM 1950 HEPATITIS C SCREENING 05/13/1968 DTAP/TDAP/TD VACCINES (1 - Tdap) 1969 PNEUMOCOCCAL VACCINE 50+ (1 of 1 - PCV) 2000 ZOSTER VACCINE (1 of 2) 2000 COVID-19 VACCINE ( - 2023-2 5 season) 2024 INFLUENZA VACCINE (#1) 2024 DEPRESSION SCREENING 06/21/2024 Respiratory Syncytial Virus (RSV) Vaccine Pt: or over 60 yrs (1 - 1-dose 75+ series) 2025 HEPATITIS B VACCINE Aged Out No longe r eligible based on patient's age to complete this topic HIB VACCINE Aged Out No longer eligi ble based on patient's age to complete this topic HPV VACCINE Aged Out No longer eligi ble based on patient's age to complete this topic MENINGOCOCCAL (Group B) VACCINE Aged Out No longer eligible based on patient's age to complete this topic MENINGOCOCCAL VACCINE Aged Out No kostas mariza eligible based on patient's age to complete this topic
--- OUTSIDE RECORDS SUMMARY | 2024-08-10 10:30 | XMS_ITS | Referral Summary ---
Author Organization [facility] Address [address] [place] [address] Care Team Providers Care Bioinformatics Analyst Name Role Phone Unavailable Primary Care Provider Unavailabl e Source Comments [facility],non-owned Affiliates and Associated Physician Practices is amultiple site organization consisting of ambulatory clinics and hospital sitesin [place], [place], [place] and [place]. This disclosure is being madepursuant to the Care Everywhere program and may not contain all information available regarding this patient. Last updated 18.[facility] [employer] Social History Tobacco Use Types Packs/Day Years Used Date Smoking Tobacco: Never Assessed Sex and Gender Information Value Date Recorded Sex Assigned at Not on file Gender Identity Not on file Sexual Orientation Not on file Plan of Treatment Not on file
--- OUTSIDE RECORDS SUMMARY | 2024-08-10 10:30 | XMS_ITS | Encounter Summary ---
Author Organization [facility] Address [address] [place] [address] Care Team Providers Care Jv Baseball Coach Name Role Phone Unavailable Primary Care Provider Unavailabl e Encounter Details Date Type Department Care Team (Late st Contact Info) Description 12/01/2022 Lab Requisition [facility] - DermPath Lab [address] [place] [id number] Jaxson Nazario MD [address] [place] [address] Social History Tobacco Use Types Packs/Day Years Used Date Smoking Tobacco: Never Assessed Sex and Gender Information Value Date Recorded Sex Assigned at Not on file Gender Identity Not on file Sexual Orientation Not on file documented as of this encounter Plan of Treatment Not on file documented as of this encounter Procedures Procedure Name Priority Date/Time Associated Diagnosis Comments DERMATOPATHOLOGY Routine 11/30/2022 12:0 0 AM CDT documented in this encounter Results * DERMATOPATHOLOGY (11/30/2022 12:00 AM CDT) Case Report Dermatopathology Report Case: [id number] Authorizing Provider: Jaxson Nazario MD Collected: 11/30/2022 12:00 AM Ordering Location: [facility] DermPath Lab Received: 12/01/2022 12:35 PM Pathologist: Claudette Diop MD Specimens: A) - Skin, right sup buttock medially B) - Skin, lower lat left side 4:09 PM CDT DERMATOPATHOLOGY LABORATORY Final Diagnosis Specimen A. 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 Other Dermatitis 3 4:09 PM [facility] DERMATOPATHOLOGY LABORATORY Gross Description Specimen A: [...] 5x4x3 mm. Jar 0. 3 4:09 PM [facility] DERMATOPATHOLOGY LABORATORY Microscopic Description Specimen A. [...] frequency, a drug-induced hypersensitivity, lichenoid keratosis, and tfl-drnt-fevdmpf hypersensitivity (tattoo reaction, postherpetic dermatitis, scabies and post-scabetic dermatitis.) Less commonly, these histologic findings can be seen in pigmented purpuric dermatoses, granuloma annulare and lichen striatus. Additionally, this reaction pattern may be seen in patients with endocrinopathies, underlying granulomatous systemic disorders, or with a history of viral, fungal, or bacterial infections. Clinicopathologic correlation is recommended. See references below. References: (1) Stacie FISHER, Cruz A, Himanshu A, Gama O, Nawaf J, Willard K. Lichenoid granulomatous dermatitis revisited: A retrospective case series. J Am Acad Dermatol. 2019 Apr;81(5):2951-9256 . PMID: [id number]. (2) Dianelys PHAN, Aamir AN. Lichenoid and granulomatous dermatitis. Int J Dermatol. 2000 Jul;39(2):126-33. PMID: [id number]. 3 4:09 PM CDT DERMATOPATHOLOGY LABORATORY Disclaimer An external and internal positive and negative controls are appropriate for the histochemical, immunohistochemical and immunofluorescence stain(s) in this case (if any), except where stated explicitly. The performance characteristics of the stain(s) cited in this report were developed and its performance characteristic determined by the Dermatopathology Laboratory at [facility], directed by Dr. Robyn Pittman. These tests need not be, and therefore are not, approved by the [place] Food and Drug Administration. The tests are used for clinical purposes. Billing Codes Specimen Charges Stain Charges 71368 16034 1 1 40939 14088 61391 70963 78858 51576 31318 36188 81742 04374 01520 19734 60893 57560 41445 84292 96792 41368 1 1 1 1 1 1 1 [...] LAB - PATHOLOGY/CYTO LOGY ORDERABLES DERMATOPATHOLOGY LABORATORY [facility] - Department of Dermatology [facility] Medicine [address] [place] [address], [address] [phone] documented in this encounter Visit Diagnoses Not on filedocumented in this encounter
[2024-08-10 20:31] LABS: Alanine Aminotransferase 29 U/L (6-35); Alkaline Phosphatase 73 U/L (38-126); Anion Gap 6 mmol/L (4-12); Aspartate Amino Transferase 38 U/L (14-36); Bilirubin,Total 0.6 mg/dL (0.2-1.3); Blood Urea Nitrogen 21 mg/dL (7-17); Calcium 10.2 mg/dL (8.4-10.2); Carbon Dioxide 32 mmol/L (22-30); Chloride 100 mmol/L (98-107); Estimated Glomerular Filt Rate > 60; Glucose 98 mg/dL (65-110); Potassium 5.1 mmol/L (3.4-5.0); Sodium 138 mmol/L (137-145)
[2024-08-10 20:44] LABS: Hemoglobin A1C 5.5 % (<5.7)
[2024-08-11 05:32] LABS: Free T4 Free Thyroxine Reflex 1.13 ng/dL (0.78-2.19)
[2024-08-11 06:30] LABS: Total Triiodothyronine (T3) 1.73 NG/ML (0.97-1.69)
== END 2024-08-10 10:10 | disposition home or self-care (01) ==
LOC: ANHGOSHLAB 10:13
PROVIDERS: PCP Family Medicine; Visit Provider Family Medicine
DX: E03.8 Other specified hypothyroidism (principal); I10 Essential (primary) hypertension; R73.9 Hyperglycemia, unspecified
CPT/HCPCS: 36415; 80053; 83036; 84439; 84443; 84480

== ENCOUNTER 2024-10-20 13:27 | Outpatient (CLI) | payer MEDICARE, SELFPAY ==
--- NOTE | ~2024-10-20 | DEXA_ITS ---
Bone Density Report Name: ANG MAYFIELD Age: 74 Sex: Female Ethnicity: White Date of : 1950 Indication: postmenopausal; screening for osteoporosis; parental hip fracture; height loss; hysterectomy; Referring Provider: ROVERTO MENDOZA Study: Bone densitometry was performed. Exam Date: October 20, 2024 Accession number: [id number] Bone Density: Region BMD T-score Z-score Classification AP Spine(L1-L4) 0.822 -2.0 0.3 Osteopenia Femoral Neck (Left) 0.672 -1.6 0.5 Osteopenia Total Hip (Left) 0.833 -0.9 0.9 Normal Femoral Neck (Right) 0.641 -1.9 0.2 Osteopenia Total Hip (Right) 0.715 -1.9 -0.1 Osteopenia Total Hip Mean 0.774 -1.4 0.4 Osteopenia World Health Organization criteria for BMD impression classify patients as: Normal (T-score at or above -1.0), Osteopenia (T-score between -1.0 and -2.5), or Osteoporosis (T-score at or below -2.5). 10-year Fracture Risk(1): Major Osteoporotic Fracture 20% Hip Fracture 10% Reported Risk Factors: [place] (), Neck BMD=0.641, BMI=28.1, parental fracture (1) FRAX(R) Version 3.08. Fracture probability calculated for an untreated patient. Fracture probability may be lower if the patient has received treatment. Clinical Information Provided by Patient: Parent has had a hip fracture Has used the following medications: Actonel (i.e. risedronate), Vitamin D, Calcium Has the following medical conditions: Hysterectomy Patient maximum height was 66 Menopause Age: 50 Drinks caffeinated beverages Onset of menses at age 14 Number of children 2 Impression: The patient has low bone mass, based on the Total Spine T-score. The patient has an estimated ten-year risk of hip fracture of 10% and an estimated ten-year risk of major fracture of 20%, based on the WHO FRAX algorithm. The patient has risk factors, including: parental hip fracture. Discussion: BONE DENSITY IS LOW AT ONE OR MORE SKELETAL SITES. THE PATIENT'S BMD AND CLINICAL RISK FACTORS CONTRIBUTE TO THIS PATIENT'S HIGH RISK OF FRACTURE. This patient's lowest T-score is low at one or more skeletal sites. It meets the World Health Organization's (WHO) criteria for ?low bone mass? (T-score between -1.0 and -2.5). The patient's 10-year risk of hip fracture and 10 year risk of a major osteoporotic fracture as calculated by FRAX exceeds the threshold where pharmacological therapy is recommended by the National Osteoporosis Foundation (NOF). However, all treatment decisions require clinical judgment and consideration of individual patient factors, including patient preferences, comorbidities, previous drug use, risk factors not captured in the FRAX model (e.g., frailty, falls, vitamin D deficiency, increased bone turnover, interval significant decline in bone density) and possible under or overestimation of fracture risk by FRAX. The patient should follow a healthful lifestyle (good nutrition with adequate calcium and vitamin D, and appropriate weight-bearing exercise). Follow-Up: Consider a repeat BMD and Vertebral Fracture Assessment (VFA) exam in 2 years or sooner if medically necessary, to reassess this patient's status. Reported by: MANUEL on 10/20/2024 2:02:00 PM. Reviewed, dictated and finalized at location A.
--- OUTSIDE RECORDS SUMMARY | 2024-10-21 13:55 | XMS_ITS | Continuity of Care Document ---
Author Organization [facility] Address [address] [place] [address] Phone Care Team Providers Care Administration Internship Name Role Phone Nettie Emmanuel Unavailable Unavailable Advance Directives Directive Yes / No Effective Date File Name No Information Encounters Encounter Description Practice Location Reason(s) For Visit Diagnoses Date Provider Providers Copied on Encounter [facility], [address], [place], [place], [id number], [place] tel:[phone] [facility] No Information 1 Lien Sheffield. [address] , [address], [place], [address], [place]. tel:[phone] Family History Family Member Type Diagnosis Age At Onset No Information Payers Payer name Insurance type Covered republican ID Authoriza tion(s) No Information Social History [...]
--- OUTSIDE RECORDS SUMMARY | 2024-10-21 13:55 | XMS_ITS | Encounter Summary ---
Author Organization [facility] Address [address] [place] [address] Care Team Providers Care Afternoon Nanny Name Role Phone Unavailable Primary Care Provider Unavailabl e Encounter Details Date Type Department Care Team (Late st Contact Info) Description 12/01/2022 Lab Requisition [facility] - DermPath Lab [address], [facility] [place] [place] [id number] Jaxson Nazario MD [address] [place] [address] Social History Tobacco Use Types Packs/Day Years Used Date Smoking Tobacco: Never Assessed Comments Unknown Sex and Gender Information Value Date Recorded Sex Assigned at Not on file 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 Gender Identity Not on file Sexual Orientation Not on file documented as of this encounter Plan of Treatment Not on file documented as of this encounter Procedures Procedure Name Priority Date/Time Associated Diagnosis Comments DERMATOPATHOLOGY Routine 11/30/2022 12:0 0 AM CDT documented in this encounter Results * DERMATOPATHOLOGY (11/30/2022 12:00 AM CDT) Case Report Dermatopathology Report Case: [id number] Authorizing Provider: Jaxson Nazario MD Collected: 11/30/2022 12:00 AM Ordering Location: [facility] D[facility] Received: 12/01/2022 12:35 PM [...] microscopic description and comment) 3 4:09 PM [facility] DERMATOPATHOLOGY [facility]ORATORY Clinical History A-B: R/O Eczema vs. Other Dermatitis 3 4:09 PM [facility] DERMATOPATHOLOGY [facility] Gross Description Specimen A: [...] 5x4x3 mm. Jar 0. 3 4:09 PM [facility] DERMATOPATHOLOGY [facility]ORAT[facility] Microscopic Description Specimen A. [...] frequency, a drug-induced hypersensitivity, lichenoid keratosis, and czq-nyhr-vudlfqa hypersensitivity (tattoo reaction, postherpetic dermatitis, scabies and [...] case series. J Am Acad Dermatol. 2019 Apr;81(5):5568-5200 . PMID: 71822659. (2) Dianelys CM, Aamir AN. Lichenoid and granulomatous dermatitis. Int J Dermatol. 2000 Jul;39(2):126-33. PMID: 96805550. 3 4:09 PM CDT DERMATOPATHOLOGY LABORATORY Disclaimer An external and internal positive and negative controls are appropriate for the histochemical, immunohistochemical and immunofluorescence stain(s) in this case (if any), except where stated explicitly. The performance characteristics of the stain(s) cited in this report were developed and its performance characteristic determined by the Dermatopathology Laboratory at [facility], directed by Dr. Robyn Pittman. These tests need not be, and therefore are not, approved by the [place] Food and Drug Administration. The tests are used for clinical purposes. Billing Codes Specimen Charges Stain Charges 11043 64178 1 1 85938 55717 55428 95599 46752 46905 06158 75336 53193 43734 19503 32030 82275 49421 15702 36896 43989 44089 1 1 1 1 1 1 1 1 1 1 1 1 1 1 1 1 1 1 3 4:09 PM CDT DERMATOPATHOLOGY LABORATORY Embedded Images 3 4:09 PM CDT DERMATOPATHOLOGY LABORATORY Pathology/Cytology TISSUE SPECIMEN FROM SKIN / Unknown 11/30/2022 12/01/2022 12:35 PM CDT Miscellaneous samples (specimen) TISSUE SPECIMEN FROM SKIN / Unknown 11/30/2022 12/01/2022 12:35 PM CDT us Jaxson Nazario MD LAB - PATHOLOGY/CYTOLOGY ORD ERABLES Final Result DERMATOPATHOLOGY LABORATORY [facility] - Department of Dermatology [facility] Medicine [address] [place] [address], [address] [phone] documented in this encounter Visit Diagnoses Not on filedocumented in this encounter
--- OUTSIDE RECORDS SUMMARY | 2024-10-21 13:55 | XMS_ITS | Clinical Summary ---
Author Organization [facility] Address [address] [place] [address] Care Team Providers Care Personnel Technician Name Role Phone Unavailable Primary Care Provider Unavailabl e Source Comments [facility],non-owned Affiliates and Associated Physician Practices is amultiple site organization consisting of ambulatory clinics and hospital sitesin [place], [place], [place] and [place]. This disclosure is being madepursuant to the Care Everywhere program and may not contain all information available regarding this patient. 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
== END 2024-10-20 13:28 | disposition home or self-care (01) ==
LOC: ANHIMG 13:28
PROVIDERS: PCP Family Medicine; Visit Provider Family Medicine
DX: Z78.0 Asymptomatic menopausal state (principal); M85.88 Other specified disorders of bone density and structure, other site; M85.852 Other specified disorders of bone density and structure, left thigh; M85.851 Other specified disorders of bone density and structure, right thigh
CPT/HCPCS: 77080

== ENCOUNTER 2025-02-20 13:37 | Outpatient (CLI) | payer MEDICARE, SELFPAY ==
--- NOTE | ~2025-02-20 | XR_ITS ---
EXAMINATION: XR lumbar spine min 4V DATE: 02/20/2025 13:52 INDICATION: Radiculopathy lumbar region for 9 months TECHNIQUE: 5 images of the lumbar spine were obtained COMPARISON: None. FINDINGS: Bones appear osteopenic. Mild dextroconvex curvature of the lower thoracic and upper lumbar spine. No compression fracture in the lumbar spine. Grade 1 anterolisthesis of L4 on L5. Mild intervertebral disc space narrowing at the L5-S1 level. Mild degenerative change in the lower lumbar facet joints. IMPRESSION: 1. No compression fracture in the lumbar spine. 2. Mild degenerative change at the L5-S1 level. 3. Grade 1 anterolisthesis of L4 on L5. If symptoms persist or worsen, consider an MRI of the lumbar spine for further assessment. Reviewed, dictated and finalized at location Q.
== END 2025-02-20 13:38 | disposition home or self-care (01) ==
LOC: GOSHIMG 13:37
PROVIDERS: PCP Family Medicine; Visit Provider Family Medicine
DX: M54.16 Radiculopathy, lumbar region (principal)
CPT/HCPCS: 72110

== ENCOUNTER 2025-03-07 08:27 | Outpatient (CLI) | payer MEDICARE, SELFPAY ==
--- OUTSIDE RECORDS SUMMARY | 2025-03-07 09:02 | XMS_ITS | Encounter Summary ---
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 Name Role Phone Unavailable Primary Care Provider Unavailabl e Encounter Details Date Type Department Care Team (Late st Contact Info) Description 12/01/2022 Lab Requisition [facility] - DermPath Lab [address], [facility] [place] [phone] Jaxson Nazario MD [address] [place] [address] Social History Tobacco Use Types Packs/Day Years Used Date Smoking Tobacco: Never Assessed Comments Unknown Sex and Gender Information Value Date Recorded Sex Assigned at Not on file 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 Gender Identity Not on file Sexual Orientation Not on file documented as of this encounter Plan of Treatment Not on file documented as of this encounter Procedures Procedure Name Priority Date/Time Associated Diagnosis Comments DERMATOPATHOLOGY Routine 11/30/2022 12:0 0 AM CDT documented in this encounter Results * DERMATOPATHOLOGY (11/30/2022 12:00 AM CDT) Case Report Dermatopathology Report Case: [id number] Authorizing Provider: Jaxson Nazario MD Collected: 11/30/2022 12:00 AM Ordering Location: [facility] DermPath Lab Received: 12/01/2022 12:35 [...] microscopic description and comment) 3 4:09 PM T DERMATOPATHOLOGY LABORATORY at 1609 CDT Clinical History A-B: R/O Eczema vs. Other Dermatitis 3 4:09 PM T DERMATOPATHOLOGY LABORATORY Gross Description Specimen A: Received [...] 5x4x3 mm. Jar 0. 3 4:09 PM T DERMATOPATHOLOGY LABORATORY Microscopic Description Specimen A. SKIN, [...] frequency, a drug-induced hypersensitivity, lichenoid keratosis, and rmn-wrdu-bbaftus hypersensitivity (tattoo reaction, postherpetic dermatitis, scabies and [...] case series. J Am Acad Dermatol. 2019 Apr;81(5):4889-6500 . PMID: [id number]. (2) Dianelys CM, Aamir AN. Lichenoid and granulomatous dermatitis. Int J Dermatol. 2000 Jul;39(2):126-33. PMID: [id number]. 3 4:09 PM CDT DERMATOPATHOLOGY LABORATORY Disclaimer An external and internal positive and negative controls are appropriate for the histochemical, immunohistochemical and immunofluorescence stain(s) in this case (if any), except where stated explicitly. The performance characteristics of the stain(s) cited in this report were developed and its performance characteristic determined by the Dermatopathology Laboratory at [facility], directed by Dr. Robyn Pittman. These tests need not be, and therefore are not, approved by the [place] Food and Drug Administration. The tests are used for clinical purposes. Billing Codes Specimen Charges Stain Charges 76761 05335 1 1 23586 18292 98891 90588 39753 50606 72748 16817 33344 54794 61746 13173 87800 24674 90476 62154 30980 49669 1 1 1 1 1 1 1 [...] PATHOLOGY/CYTOLOGY ORD ERABLES Final Result DERMATOPATHOLOGY LABORATORY [facility] - Department of Dermatology [facility] Medicine [address] [place] [address], [address] [phone] documented in this encounter Visit Diagnoses Not on filedocumented in this encounter
--- OUTSIDE RECORDS SUMMARY | 2025-03-07 09:02 | XMS_ITS | Clinical Summary ---
Author Organization [facility] Address [address] 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 This disclosure is being madepursuant to the Care Everywhere program and may not contain all information available regarding this patient. 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
[2025-03-07 14:06] LABS: Hematocrit 43.7 % (37.0-47.0); Hemoglobin 13.8 g/dL (12.0-15.0); Immature Granulocyte Percent A 0.4 % (0-0.5); Lymphocytes Absolute Auto 1.82 K/mm3 (0.9-3.2); Mean Corpuscular HGB Conc 31.6 g/dl (32-36); Mean Corpuscular Hemoglobin 28.6 pg (26-34); Mean Corpuscular Volume 90.7 fl (80-100); Nucleated Red Blood Cells Absolute Auto 0.000 K/mm3 (0.0-0.012); Nucleated Red Blood Cells Perc 0.0 % (0.0-0.2); Platelet Count Result 212 k/mm3 (150-375); Red Blood Count 4.82 M/mm3 (4.2-5.4); White Blood Count 7.5 K/mm3 (4.5-10.0)
[2025-03-07 14:58] LABS: Thyroid Stimulating Hormone Reflex 2.220 uIU/mL (0.465-4.68)
[2025-03-07 16:11] LABS: Alanine Aminotransferase 16 U/L (6-35); Albumin Level 4.0 g/dL (3.5-5.1); Alkaline Phosphatase 68 U/L (38-126); Anion Gap 3 mmol/L (4-12); Aspartate Amino Transferase 34 U/L (14-36); Bilirubin,Total 0.5 mg/dL (0.2-1.3); Blood Urea Nitrogen 18 mg/dL (7-17); Calcium 9.8 mg/dL (8.4-10.2); Carbon Dioxide 31 mmol/L (22-30); Chloride 104 mmol/L (98-107); Cholesterol 197 mg/dL (0-200); Estimated Glomerular Filt Rate > 60; Glucose 87 mg/dL (65-110); HDL Direct 62 mg/dL; Potassium 4.9 mmol/L (3.4-5.0); Sodium 138 mmol/L (137-145); Total Protein 7.4 g/dL (6.3-8.2); Triglycerides 90 mg/dL (<150)
[2025-03-07 16:31] LABS: Hemoglobin A1C 5.2 % (<5.7)
[2025-03-07 17:05] LABS: Vitamin B12 303.0 pg/mL (239-931)
== END 2025-03-07 08:28 | disposition home or self-care (01) ==
PROVIDERS: PCP Family Medicine; Visit Provider Family Medicine
DX: E78.5 Hyperlipidemia, unspecified (principal); I10 Essential (primary) hypertension; R73.9 Hyperglycemia, unspecified; E03.8 Other specified hypothyroidism; E55.9 Vitamin D deficiency, unspecified; E53.8 Deficiency of other specified B group vitamins; E78.2 Mixed hyperlipidemia
CPT/HCPCS: 36415; 80053; 80061; 82306; 82607; 83036; 84443; 85025